=== PATIENT | male | born 1940 | race African-American/Black ===

== ENCOUNTER 2017-11-10 11:36 | Inpatient (IN) ==
[2017-11-10] MEDS ORDERED: SODIUM CHLORIDE 0.9% 500 ML IV STA (12:03)
[2017-11-10 13:05] LABS: Basophils % 0.2 % (0.0-0.8); Eosinophils % 0.1 % (0.00-10.9); Hematocrit 29.8 VOL% (42.0-52.0); Hemoglobin 9.3 GM/DL (14.0-18.0); Immature Granulocytes % 0.9 %; Immature Granulocytes Absolute 0.15 #; Lymphocytes # 1.2 10*3/uL (1.4-4.0); Lymphocytes % 6.9 % (21.2-54.2); Mean Corpuscular HGB Conc 31.2 GM/DL (32-36); Mean Corpuscular Hemoglobin 30 PG (27-34); Mean Corpuscular Volume 97.4 FL (87-102); Monocytes # 0.8 10*3/uL (0.11-0.8); Monocytes % 4.3 % (1.7-12.7); Neutrophils # 15.2 10*3/uL (1.4-7.4); Neutrophils % 87.6 % (38.7-73.9); Platelet Count 245 T/CUMM (130-400); Red Blood Count 3.06 MC/CUMM (3.8-5.5); Red Cell Distribution Width 16.5 % (9.3-17.3); White Blood Count 17.4 T/CUMM (4-12)
[2017-11-10 13:26] LABS: Lactic Acid 2.9 MMOL/L (0.4-2.0)
[2017-11-10 13:27] LABS: Alanine Aminotransferase 9 U/L (16-61); Albumin 2.4 G/DL (3.4-5.0); Alkaline Phosphatase 69 U/L (45-117); Aspartate Amino Transferase 19 U/L (0-37); Bilirubin,Total < 0.39 MG/DL (0.2-1.0); Blood Urea Nitrogen 60 MG/DL (7-18); Calcium 8.8 MG/DL (8.5-10.1); Glucose 134 MG/DL (74-106); Osmolality,Calculated 293.7 MOS/KG (273-304); Potassium 5.2 MMOL/L (3.5-5.1); Sodium 138 MMOL/L (136-145); Total Protein 7.1 G/DL (6.4-8.3)
[2017-11-10 13:28] LABS: Troponin I Only 0.652 NG/ML (0.00-0.045)
[2017-11-10 13:29] LABS: Ammonia < 10 UMOL/L (11-32)
[2017-11-10] MEDS ORDERED: VANCOMYCIN INJ 1,000 MG in SODIUM CHLORIDE 0.9% 250 ML IV STA (13:46)
[2017-11-10] MEDS ORDERED: GENTAMICIN INJ 80 MG in SODIUM CHLORIDE 0.9% 100 ML IV STA (13:47)
[2017-11-10] MEDS ORDERED: VANCOMYCIN 1,000 MG VIAL ONE (13:48)
[2017-11-10 13:53] LABS: Acanthocytes Few; Burr Cells Few
[2017-11-10 13:54] LABS: Hypochromasia 1+; Target Cells Slight
[2017-11-10 13:55] LABS: Anisocytosis Slight; Polychromasia Slight
[2017-11-10 13:56] LABS: Macrocytosis Slight; Platelet Estimate Normal
[2017-11-10 13:58] LABS: Ovalocytes Slight
[2017-11-10] MEDS ORDERED: ONDANSETRON 4 MG/2 ML VIAL IV PRN (14:44)
[2017-11-10] MEDS ORDERED: ALBUTEROL 2.5 MG/3 ML NEB RESP TX PRN (14:53)
[2017-11-10] MEDS ORDERED: SODIUM CHLORIDE 0.9% 1,000 ML IV SCH (15:00)
[2017-11-10] MEDS ORDERED: LEVOFLOXACIN INJ 750 MG in PREMIX 1 EACH IV SCH (15:00)
[2017-11-10] MEDS ORDERED: ENOXAPARIN 30 MG/0.3 ML SYRINGE SUBCUT SCH (15:00)
[2017-11-10] MEDS ORDERED: GENTAMICIN 80 MG/2 ML VIAL ONE (15:12)
[2017-11-10 15:33] LABS: Risk Ratio 3.73; VLDL CHOLESTEROL 16.6 MG/DL
[2017-11-10 16:12] LABS: INR 7.5
[2017-11-10 16:13] LABS: PT Patient Result 73.3 SECS
[2017-11-10] MEDS ORDERED: PHYTONADIONE 10 MG/1 ML AMP SUBCUT ONE (16:34)
[2017-11-10 17:09] LABS: ABG HCO3 24.6 MMOL/L (20-26); ABG Oxygen Saturation 91.8 % (95-100); ABG PCO2 32.3 MM HG (35-48); ABG PO2 64.4 MM HG (80-95); ABG TCO2 25.6 MMOL/L (23-27); Allen Test Positive
[2017-11-10] MEDS: PANTOPRAZOLE 40 MG VIAL IV SCH (17:16)
[2017-11-10 17:23] LABS: Lactic Acid 2.9 MMOL/L (0.4-2.0)
[2017-11-10] MEDS: PIPERACILLIN/TAZOBACTAM 3,375 MG in SODIUM CHLORIDE 0.9% 100 ML IV SCH (17:57)
[2017-11-11] MEDS: PIPERACILLIN/TAZOBACTAM 3,375 MG in SODIUM CHLORIDE 0.9% 100 ML IV SCH ×3 (02:39→18:30)
[2017-11-11 03:39] LABS: Basophils % 0.1 % (0.0-0.8); Eosinophils # 0.1 10*3/uL (0.0-0.87); Eosinophils % 0.4 % (0.00-10.9); Hematocrit 25.3 VOL% (42.0-52.0); Hemoglobin 8.1 GM/DL (14.0-18.0); Immature Granulocytes % 0.8 %; Immature Granulocytes Absolute 0.12 #; Lymphocytes # 1.3 10*3/uL (1.4-4.0); Lymphocytes % 8.7 % (21.2-54.2); Mean Corpuscular Hemoglobin 31 PG (27-34); Mean Corpuscular Volume 97.7 FL (87-102); Mean Platelet Volume 10.2 FL (9.6-12.0); Monocytes # 0.7 10*3/uL (0.11-0.8); Monocytes % 4.7 % (1.7-12.7); Neutrophils # 12.5 10*3/uL (1.4-7.4); Neutrophils % 85.3 % (38.7-73.9); Platelet Count 222 T/CUMM (130-400); Red Blood Count 2.59 MC/CUMM (3.8-5.5); Red Cell Distribution Width 16.7 % (9.3-17.3); White Blood Count 14.7 T/CUMM (4-12)
[2017-11-11 04:04] LABS: Osmolality,Calculated 297.4 MOS/KG (273-304); Potassium 5.2 MMOL/L (3.5-5.1)
[2017-11-11 04:48] LABS: PT Patient Result 77.9 SECS
[2017-11-11] MEDS ORDERED: PHYTONADIONE 10 MG/1 ML AMP SUBCUT ONE (08:15)
[2017-11-11] MEDS ORDERED: VANCOMYCIN INJ 500 MG in SODIUM CHLORIDE 0.9% 100 ML IV PRN (09:00)
[2017-11-11] MEDS ORDERED: SODIUM CHLORIDE 0.9% 500 ML IV ONE (09:15)
[2017-11-11 10:01] LABS: Troponin I Only 0.466 NG/ML (0.00-0.045)
[2017-11-11] MEDS: ASPIRIN EC 81 MG TABLET PO SCH (10:08)
[2017-11-11] MEDS ORDERED: EPOETIN ALFA 10,000 UNIT/1 ML VIAL IV PRN (13:35)
[2017-11-11] MEDS: PANTOPRAZOLE 40 MG VIAL IV SCH ×2 (15:50→18:31)
[2017-11-11] MEDS ORDERED: HEPARIN 10,000 UNIT/10 ML VIAL IV PRN (15:54)
[2017-11-11] MEDS ORDERED: SODIUM CHLORIDE 0.9% 1,000 ML IV SCH (16:00)
[2017-11-12] MEDS: PIPERACILLIN/TAZOBACTAM 3,375 MG in SODIUM CHLORIDE 0.9% 100 ML IV SCH ×2 (03:53→16:12)
[2017-11-12 06:00] LABS: Basophils % 0.3 % (0.0-0.8); Eosinophils % 0.3 % (0.00-10.9); Hematocrit 23.3 VOL% (42.0-52.0); Hemoglobin 7.4 GM/DL (14.0-18.0); Immature Granulocytes % 0.9 %; Lymphocytes # 1.8 10*3/uL (1.4-4.0); Lymphocytes % 15.2 % (21.2-54.2); Mean Corpuscular HGB Conc 31.8 GM/DL (32-36); Mean Corpuscular Hemoglobin 31 PG (27-34); Mean Corpuscular Volume 96.7 FL (87-102); Mean Platelet Volume 9.7 FL (9.6-12.0); Monocytes # 0.6 10*3/uL (0.11-0.8); Monocytes % 5.5 % (1.7-12.7); NRBC # 0.06 10*3/uL; Neutrophils % 77.8 % (38.7-73.9); Platelet Count 258 T/CUMM (130-400); Red Blood Count 2.41 MC/CUMM (3.8-5.5); Red Cell Distribution Width 16.6 % (9.3-17.3); White Blood Count 11.6 T/CUMM (4-12)
[2017-11-12] MEDS: SODIUM CHLORIDE 0.9% 1,000 ML IV SCH (06:06)
[2017-11-12 06:32] LABS: INR 1.8; PT Patient Result 18.6 SECS; PT Patient Result 18.9 SECS
[2017-11-12 06:48] LABS: Troponin I Only 0.589 NG/ML (0.00-0.045)
[2017-11-12 07:03] LABS: Alanine Aminotransferase < 9 U/L (16-61); Albumin 2.2 G/DL (3.4-5.0); Alkaline Phosphatase 58 U/L (45-117); Aspartate Amino Transferase 19 U/L (0-37); Blood Urea Nitrogen 45 MG/DL (7-18); Calcium 8.1 MG/DL (8.5-10.1); Glucose 97 MG/DL (74-106); Osmolality,Calculated 286.7 MOS/KG (273-304); Potassium 4.7 MMOL/L (3.5-5.1); Sodium 138 MMOL/L (136-145)
[2017-11-12 07:10] LABS: Lymphocytes 7 % (20-55); Nucleated Red Blood Cells 1 (0-5); Segmented Neutrophils 87 % (50-85); Total Cells Counted 100
[2017-11-12 07:11] LABS: Hypochromasia 1+; Microcytosis 1+
[2017-11-12 07:12] LABS: Ovalocytes Slight; Platelet Estimate Normal
[2017-11-12] MEDS ORDERED: MIDAZOLAM 10 MG/2 ML VIAL ONE (09:29)
[2017-11-12] MEDS ORDERED: MEPERIDINE 50 MG/1 ML VIAL ONE (09:30)
[2017-11-12] MEDS ORDERED: SODIUM CHLORIDE 0.9% 1,000 ML IV PRN (10:52)
[2017-11-12] MEDS: ASPIRIN EC 81 MG TABLET PO SCH (11:20)
[2017-11-12] MEDS ORDERED: VANCOMYCIN INJ 250 MG in SODIUM CHLORIDE 0.9% 100 ML IV ONE (12:30)
[2017-11-12] MEDS ORDERED: MIDAZOLAM 2 MG/2 ML VIAL IV PRN (12:45)
[2017-11-12] MEDS: METOPROLOL TARTRATE 25 MG TABLET PO SCH ×2 (12:58→21:50)
[2017-11-12] MEDS: amLODIPine 5 MG TABLET PO SCH (12:58)
[2017-11-12] MEDS: MIDAZOLAM 2 MG/2 ML VIAL IV PRN ×3 (13:48→13:50)
[2017-11-12] MEDS: LEVOFLOXACIN INJ 500 MG in PREMIX 1 EACH IV SCH (16:12)
[2017-11-12] MEDS: PANTOPRAZOLE 40 MG VIAL IV SCH (16:13)
[2017-11-12] MEDS: WARFARIN 3 MG TABLET PO SCH (19:20)
[2017-11-13] MEDS: PIPERACILLIN/TAZOBACTAM 3,375 MG in SODIUM CHLORIDE 0.9% 100 ML IV SCH ×2 (03:25→15:35)
[2017-11-13] MEDS: SODIUM CHLORIDE 0.9% 1,000 ML IV SCH (05:33)
[2017-11-13 06:03] LABS: Basophils % 0.3 % (0.0-0.8); Eosinophils % 0.4 % (0.00-10.9); Hematocrit 24.6 VOL% (42.0-52.0); Hemoglobin 7.7 GM/DL (14.0-18.0); Immature Granulocytes Absolute 0.11 #; Lymphocytes # 1.8 10*3/uL (1.4-4.0); Lymphocytes % 15.8 % (21.2-54.2); Mean Corpuscular HGB Conc 31.3 GM/DL (32-36); Mean Corpuscular Hemoglobin 31 PG (27-34); Mean Corpuscular Volume 98.8 FL (87-102); Mean Platelet Volume 9.6 FL (9.6-12.0); Monocytes # 0.5 10*3/uL (0.11-0.8); Monocytes % 4.9 % (1.7-12.7); NRBC # 0.12 10*3/uL; Neutrophils # 8.6 10*3/uL (1.4-7.4); Neutrophils % 77.6 % (38.7-73.9); Platelet Count 264 T/CUMM (130-400); Red Blood Count 2.49 MC/CUMM (3.8-5.5); White Blood Count 11.1 T/CUMM (4-12)
[2017-11-13 06:13] LABS: INR 1.5; PT Patient Result 15.4 SECS
[2017-11-13 07:42] LABS: Albumin 2.1 G/DL (3.4-5.0); Bilirubin,Total 0.6 MG/DL (0.2-1.0); Osmolality,Calculated 298.3 MOS/KG (273-304); Potassium 4.9 MMOL/L (3.5-5.1)
[2017-11-13] MEDS: METOPROLOL TARTRATE 25 MG TABLET PO SCH ×2 (13:07→21:24)
[2017-11-13] MEDS: ASPIRIN EC 81 MG TABLET PO SCH (13:08)
[2017-11-13] MEDS: amLODIPine 5 MG TABLET PO SCH (13:08)
[2017-11-13] MEDS ORDERED: VANCOMYCIN INJ 500 MG in SODIUM CHLORIDE 0.9% 100 ML IV ONE (15:00)
[2017-11-13] MEDS: PANTOPRAZOLE 40 MG VIAL IV SCH (15:35)
[2017-11-13] MEDS: WARFARIN 3 MG TABLET PO SCH (18:24)
[2017-11-14] MEDS: PIPERACILLIN/TAZOBACTAM 3,375 MG in SODIUM CHLORIDE 0.9% 100 ML IV SCH ×2 (02:50→14:20)
[2017-11-14 05:26] LABS: Basophils % 0.2 % (0.0-0.8); Eosinophils % 0.3 % (0.00-10.9); Hematocrit 32.2 VOL% (42.0-52.0); Hemoglobin 10.4 GM/DL (14.0-18.0); Immature Granulocytes % 1.1 %; Immature Granulocytes Absolute 0.15 #; Lymphocytes # 1.2 10*3/uL (1.4-4.0); Lymphocytes % 9.3 % (21.2-54.2); Mean Corpuscular HGB Conc 32.3 GM/DL (32-36); Mean Corpuscular Hemoglobin 30 PG (27-34); Mean Corpuscular Volume 91.2 FL (87-102); Mean Platelet Volume 9.3 FL (9.6-12.0); Monocytes # 0.6 10*3/uL (0.11-0.8); Monocytes % 4.7 % (1.7-12.7); NRBC # 0.29 10*3/uL; Neutrophils # 11.2 10*3/uL (1.4-7.4); Neutrophils % 84.4 % (38.7-73.9); Platelet Count 221 T/CUMM (130-400); Red Blood Count 3.53 MC/CUMM (3.8-5.5); Red Cell Distribution Width 19.4 % (9.3-17.3); White Blood Count 13.2 T/CUMM (4-12)
[2017-11-14 05:36] LABS: INR 1.4; PT Patient Result 14.9 SECS
[2017-11-14 05:48] LABS: Calcium 8.3 MG/DL (8.5-10.1); Osmolality,Calculated 287.7 MOS/KG (273-304); Potassium 4.3 MMOL/L (3.5-5.1)
[2017-11-14 05:55] LABS: Burr Cells Slight; Giant Platelets Few; Hypochromasia 1+; Microcytosis Slight; Ovalocytes Slight; Platelet Estimate Adequate
[2017-11-14] MEDS: amLODIPine 5 MG TABLET PO SCH (09:02)
[2017-11-14] MEDS: ASPIRIN EC 81 MG TABLET PO SCH (09:02)
[2017-11-14] MEDS: METOPROLOL TARTRATE 25 MG TABLET PO SCH (09:31)
[2017-11-14] MEDS ORDERED: ENOXAPARIN 60 MG/0.6 ML SYRINGE SUBCUT SCH (10:00)
[2017-11-14] MEDS: LEVOFLOXACIN INJ 500 MG in PREMIX 1 EACH IV SCH (14:20)
[2017-11-14] MEDS: PANTOPRAZOLE 40 MG VIAL IV SCH (14:20)
[2017-11-14] MEDS ORDERED: ONDANSETRON 4 MG TABLET PO PRN (15:22)
[2017-11-14] MEDS ORDERED: LORATADINE 10 MG TABLET PO PRN (15:22)
[2017-11-14] MEDS: WARFARIN 5 MG TABLET PO SCH (18:37)
[2017-11-14] MEDS: ATORVASTATIN 80 MG TABLET PO SCH (21:00)
[2017-11-14] MEDS: MEGESTROL 400 MG/10 ML UDCUP PO SCH (21:01)
[2017-11-15] MEDS: METOPROLOL TARTRATE 25 MG TABLET PO SCH ×2 (01:26→08:44)
[2017-11-15] MEDS: PIPERACILLIN/TAZOBACTAM 3,375 MG in SODIUM CHLORIDE 0.9% 100 ML IV SCH ×2 (02:52→14:00)
[2017-11-15 04:39] LABS: Basophils # 0.1 10*3/uL (0.0-0.2); Basophils % 0.4 % (0.0-0.8); Eosinophils # 0.1 10*3/uL (0.0-0.87); Eosinophils % 0.4 % (0.00-10.9); Hematocrit 32.7 VOL% (42.0-52.0); Hemoglobin 10.6 GM/DL (14.0-18.0); Immature Granulocytes Absolute 0.14 #; Lymphocytes # 2.2 10*3/uL (1.4-4.0); Lymphocytes % 16.1 % (21.2-54.2); Mean Corpuscular HGB Conc 32.4 GM/DL (32-36); Mean Corpuscular Hemoglobin 30 PG (27-34); Mean Corpuscular Volume 92.9 FL (87-102); Mean Platelet Volume 9.6 FL (9.6-12.0); Monocytes # 0.9 10*3/uL (0.11-0.8); Monocytes % 6.2 % (1.7-12.7); NRBC # 0.23 10*3/uL; Neutrophils # 10.4 10*3/uL (1.4-7.4); Neutrophils % 75.9 % (38.7-73.9); Platelet Count 216 T/CUMM (130-400); Red Blood Count 3.52 MC/CUMM (3.8-5.5); Red Cell Distribution Width 19.4 % (9.3-17.3); White Blood Count 13.7 T/CUMM (4-12)
[2017-11-15 04:49] LABS: INR 1.7; PT Patient Result 17.2 SECS
[2017-11-15 05:07] LABS: Calcium 8.1 MG/DL (8.5-10.1); Osmolality,Calculated 293.5 MOS/KG (273-304); Potassium 4.5 MMOL/L (3.5-5.1)
[2017-11-15 06:20] LABS: Calcium 8.3 MG/DL (8.5-10.1); Osmolality,Calculated 293.5 MOS/KG (273-304); Potassium 4.5 MMOL/L (3.5-5.1)
[2017-11-15] MEDS: MEGESTROL 400 MG/10 ML UDCUP PO SCH ×2 (08:44→21:19)
[2017-11-15] MEDS: ASPIRIN EC 81 MG TABLET PO SCH (08:44)
[2017-11-15] MEDS ORDERED: FOLIC ACID 1 MG TABLET PO SCH (09:00)
[2017-11-15] MEDS ORDERED: ENOXAPARIN 40 MG/0.4 ML SYRINGE SUBCUT SCH (09:00)
[2017-11-15] MEDS: amLODIPine 5 MG TABLET PO SCH (09:44)
[2017-11-15] MEDS: PANTOPRAZOLE 40 MG VIAL IV SCH (14:00)
[2017-11-15] MEDS: WARFARIN 5 MG TABLET PO SCH (17:02)
[2017-11-15] MEDS ORDERED: METOPROLOL SUCCINATE XL 25 MG TABLET PO SCH (21:00)
[2017-11-15] MEDS: ATORVASTATIN 80 MG TABLET PO SCH (21:18)
[2017-11-16] MEDS: PIPERACILLIN/TAZOBACTAM 3,375 MG in SODIUM CHLORIDE 0.9% 100 ML IV SCH (02:42)
[2017-11-16 05:56] VITALS: BP 116/38
[2017-11-16 06:43] LABS: Basophils % 0.3 % (0.0-0.8); Hematocrit 37.4 VOL% (42.0-52.0); Hemoglobin 12.2 GM/DL (14.0-18.0); Immature Granulocytes % 1.5 %; Immature Granulocytes Absolute 0.24 #; Mean Corpuscular HGB Conc 32.6 GM/DL (32-36); Mean Corpuscular Hemoglobin 31 PG (27-34); Mean Corpuscular Volume 93.5 FL (87-102); Mean Platelet Volume 9.6 FL (9.6-12.0); Monocytes # 0.5 10*3/uL (0.11-0.8); Monocytes % 3.3 % (1.7-12.7); NRBC # 0.44 10*3/uL; Neutrophils # 14.2 10*3/uL (1.4-7.4); Neutrophils % 88.9 % (38.7-73.9); Platelet Count 183 T/CUMM (130-400); Red Cell Distribution Width 20.6 % (9.3-17.3)
[2017-11-16 07:01] LABS: INR 2.6
[2017-11-16 07:02] LABS: PT Patient Result 26.8 SECS
[2017-11-16 07:19] LABS: Calcium 8.4 MG/DL (8.5-10.1); Osmolality,Calculated 306.4 MOS/KG (273-304); Potassium 5.7 MMOL/L (3.5-5.1)
[2017-11-16] MEDS ORDERED: INSULIN REGULAR 100 UNIT/ML ONE (07:39)
[2017-11-16] MEDS ORDERED: SODIUM BICARB INJ 150 MEQ in DEXTROSE 5% 850 ML IV SCH (09:00)
== END 2017-11-16 07:49 | disposition expired | DRG 871 ==
LOC: N.ED 11:36 → SUATTDRO 13:57 → SUPCPDRO 13:57 → N.EDINP 14:44 → SUATTDRO 14:44 → N.EDINP 15:26 → N.ICU 16:07 → N.TELEN 11-14 15:21
PROVIDERS: ADMIT Hospitalist; ATTEND Internal Medicine